=== PATIENT | female | born 1935 | race Caucasian/White ===

== ENCOUNTER → 2016-03-13 | Outpatient (CLI) | payer MEDICARE ==
[~2016-03-13] MED LIST: ALTACE2.5 MG PO; AMBIEN CR6.25 MG PO; ANUCORT-HC25 MG R; ATENOLOL25 MG PO; Altace5 MG PO; CALCIUM 600600 M1 PO; CALCIUM W/D PO; CALCIUM500 M1 PO; CALCIUM600 M2 PO; CARAFATE1 G1 PO; CITRACAL + D 311 TAB PO; COLLAGEN PO; COUMADIN1 MG PO; COUMADIN2 M1 PO; COUMADIN2.5 M1 PO; COUMADIN3 M1 PO; COUMADIN3 MG PO; Carafate1 GM PO; Coumadin3 MG PO; EPI EZ PEN1 MG/ML IM; FENTANYL; FLONASE0.05 MG/AC; GOOD SENSE ALLE10 M2 PO; Lopressor25 MG PO; Lovenox40 MG/0.4 PO; METOPROLOL; METOPROLOL SR25 MG PO; MULTIPLE VITAMI1 CAP PO; NEXIUM40 MG PO; NORTRIPTYLINE10 MG PO; OMEPRAZOLE20 M2 PO; PREDNISONE20 MG PO; RAMIPRIL1.25 MG PO; RAMIPRIL2.5 MG PO; ROBAXIN500 MG PO; SIMVASTATIN40 MG PO; SPIRIVA -- 3018 MCG PO; SPIRIVA18 MCG IH; SYMBICORT 10.10.2 ML IH; SYMBICORT1 AE1 INH; SYMBICORT1 AER IH; TRAMADOL HCL50 MG PO; ULTRAM50 MG PO; WARFARIN SODIUM1 MG PO; ZITHROMAX250 MG PO; ZOCOR40 MG PO; [UNRECOGNIZED DRUG - OTHER] PO
== END | disposition home or self-care (01) ==
LOC: RAD 18:08
DX: M25.551 Pain in right hip (principal); M79.2 Neuralgia and neuritis, unspecified; G89.29 Other chronic pain

== ENCOUNTER → 2016-05-05 | Outpatient (CLI) | payer MEDICARE | END | disposition home or self-care (01) | LOC: MAMMO 09:19 | DX: Z12.31 Encounter for screening mammogram for malignant neoplasm of breast (principal) ==

== ENCOUNTER → 2016-05-14 | Outpatient (CLI) | payer MEDICARE ==
[2016-05-14 12:53] LABS: HEMATOCRIT 39.6 % (37.0-47.0); HEMOGLOBIN 12.6 g/dl (12.0-16.0); MEAN CELL VOLUME 95.4 fl (81.0-99.0); MEAN CORPUSCULAR HGB 30.4 pg (27.0-31.0); MEAN CORPUSCULAR HGB CONC 31.8 g/dl (33.0-37.0); MEAN PLATELET VOLUME 10.1 fl (9.6-12.3); RED BLOOD COUNT 4.15 10*6/uL (4.10-5.10); RED CELL DISTRI WIDTH 13.6 % (0-14.5); WHITE BLOOD COUNT 7.6 10*3/uL (4.8-10.8)
[2016-05-14 13:16] LABS: ALBUMIN 3.9 gm/dl (3.1-4.5); BILIRUBIN, TOTAL 0.7 mg/dl (0.2-1.0); POTASSIUM 4.3 mmol/L (3.5-5.1); TOTAL PROTEIN 7.1 gm/dL (6.4-8.2)
== END | disposition home or self-care (01) ==
LOC: LAB 12:15
PROVIDERS: Internal Medicine
DX: I10 Essential (primary) hypertension (principal); E78.00 Pure hypercholesterolemia, unspecified; R10.11 Right upper quadrant pain

== ENCOUNTER → 2016-05-22 | Outpatient (CLI) | payer MEDICARE | END | disposition home or self-care (01) | LOC: US 02:12 | DX: E04.1 Nontoxic single thyroid nodule (principal); R10.11 Right upper quadrant pain ==

== ENCOUNTER → 2016-06-13 | Outpatient (CLI) | payer MEDICARE ==
[2016-06-13 12:46] LABS: INTERNATIONAL NORM RATIO 2.7 (2.0-3.5); PROTHROMBIN TIME 30.2 SECONDS (9.0-12.4)
== END | disposition home or self-care (01) ==
LOC: LAB 11:49
PROVIDERS: Internal Medicine
DX: Z86.718 Personal history of other venous thrombosis and embolism (principal)

== ENCOUNTER 2016-06-19 08:41 | Inpatient (IN) | payer MEDICARE ==
[~2016-06-19] VITALS: Ht 154.9 cm; Wt 58.1 kg
[2016-06-19 08:41] VITALS: BP 176/88
[2016-06-19 09:04] VITALS: BP 176/89
[2016-06-19 09:36] LABS: BASO % 0.4 % (0.0-1.0); EOS # 0.3 10*3/uL (0.0-0.4); EOS % 3.7 % (1.0-4.0); HEMOGLOBIN 12.7 g/dl (12.0-16.0); LYMPH # 2.3 10*3/uL (1.3-4.4); LYMPH % 30.9 % (27.0-41.0); MEAN CELL VOLUME 95.7 fl (81.0-99.0); MEAN CORPUSCULAR HGB 30.4 pg (27.0-31.0); MEAN CORPUSCULAR HGB CONC 31.8 g/dl (33.0-37.0); MEAN PLATELET VOLUME 10.9 fl (9.6-12.3); MONO # 0.9 10*3/uL (0.1-1.0); MONO % 12.2 % (3.0-9.0); NEUT # 3.9 10*3/uL (2.3-7.9); NEUT % 52.7 % (47.0-73.0); PLATELET COUNT AUTOMATED 311 10*3/uL (130-400); RED BLOOD COUNT 4.18 10*6/uL (4.10-5.10); RED CELL DISTRI WIDTH 13.5 % (0-14.5); WHITE BLOOD COUNT 7.4 10*3/uL (4.8-10.8)
[2016-06-19 09:43] LABS: INTERNATIONAL NORM RATIO 1.1 (2.0-3.5); PROTHROMBIN TIME 11.2 SECONDS (9.0-12.4)
[2016-06-19 10:17] LABS: BUN 21 mg/dl (7-24); CARBON DIOXIDE 28 mmol/L (21-32); CHLORIDE 108 mmol/L (98-107); EST GLOM FILT AFRICAN AMERICAN 58 ml/min; GLUCOSE 80 mg/dL (65-99); POTASSIUM 4.4 mmol/L (3.5-5.1); SODIUM 142 mmol/L (136-145); TROPONIN I < 0.015 ng/ml (<0.045)
[2016-06-19 10:41] VITALS: BP 140/66
[2016-06-19] MEDS ORDERED: SYMBICORT1 AE1 INH (11:00)
[2016-06-19 11:11] VITALS: BP 122/68
[2016-06-19] MEDS ORDERED: PROZAC10 MG PO (15:17)
[2016-06-19] MEDS ORDERED: TOPROL XL25 MG PO (15:18)
[2016-06-19] MEDS ORDERED: ZOFRAN4 MG PO (15:18)
[2016-06-19] MEDS ORDERED: ZANTAC 150150 MG PO (15:18)
[2016-06-19] MEDS ORDERED: COUMADIN1 M1 PO (15:19)
[2016-06-19] MEDS ORDERED: SILENOR3 M1 PO (15:20)
[2016-06-19 16:00] VITALS: BP 105/50
[2016-06-19 18:26] LABS: CHOLESTEROL 249 mg/dL (<200); HDL CHOLESTEROL 78 mg/dl (40-60); LDL CHOLESTEROL 139 mg/dL (9-159); MAGNESIUM 1.9 mg/dL (1.5-2.1); TRIGLYCERIDES 160 mg/dl (<150); VLDL CHOLESTEROL 32 mg/dL (6-40)
[2016-06-19 18:30] LABS: TROPONIN I < 0.015 ng/ml (<0.045)
[2016-06-19 18:32] LABS: THYROID STIM HORMONE (HS) 0.968 uIU/ml (0.358-4.75)
[2016-06-19 20:00] VITALS: BP 113/50
[2016-06-19 20:10] LABS: VITAMIN D, 25-HYDROXY 40.9 ng/mL (30-100)
[2016-06-19 20:11] LABS: FOLIC ACID 12.61 ng/mL (>5.38)
[2016-06-20] VITALS: BP 109/66
[2016-06-20 07:57] LABS: BASO % 0.1 % (0.0-1.0); EOS # 0.3 10*3/uL (0.0-0.4); EOS % 2.8 % (1.0-4.0); HEMATOCRIT 35.9 % (37.0-47.0); HEMOGLOBIN 11.4 g/dl (12.0-16.0); LYMPH # 2.8 10*3/uL (1.3-4.4); LYMPH % 30.3 % (27.0-41.0); MEAN CELL VOLUME 94.5 fl (81.0-99.0); MEAN CORPUSCULAR HGB CONC 31.8 g/dl (33.0-37.0); MEAN PLATELET VOLUME 10.4 fl (9.6-12.3); MONO % 11.1 % (3.0-9.0); NEUT # 5.1 10*3/uL (2.3-7.9); NEUT % 55.5 % (47.0-73.0); PLATELET COUNT AUTOMATED 249 10*3/uL (130-400); RED CELL DISTRI WIDTH 13.6 % (0-14.5); WHITE BLOOD COUNT 9.2 10*3/uL (4.8-10.8)
[2016-06-20 08:00] VITALS: BP 94/54
[2016-06-20 08:23] LABS: ALBUMIN 3.1 gm/dl (3.1-4.5); BILIRUBIN, TOTAL 0.5 mg/dl (0.2-1.0); POTASSIUM 4.2 mmol/L (3.5-5.1); TOTAL PROTEIN 6.2 gm/dL (6.4-8.2)
[2016-06-20 08:24] LABS: INTERNATIONAL NORM RATIO 1.5 (2.0-3.5); PROTHROMBIN TIME 15.9 SECONDS (9.0-12.4)
== END 2016-06-20 11:30 | disposition left against medical advice (07) | DRG 193 ==
LOC: ED 08:41 → EDHOLD 10:55 → 5E 10:55
PROVIDERS: Emergency Medicine; Internal Medicine Hospice and Palliative Medicine
DX: R09.1 Pleurisy (principal); I21.3 ST elevation (STEMI) myocardial infarction of unspecified site; D68.59 Other primary thrombophilia; I48.0 Paroxysmal atrial fibrillation; N18.3 Chronic kidney disease, stage 3 (moderate); I48.2 Chronic atrial fibrillation; Z53.21 Procedure and treatment not carried out due to patient leaving prior to being seen by health care provider; K21.9 Gastro-esophageal reflux disease without esophagitis; F41.9 Anxiety disorder, unspecified; R07.89 Other chest pain; E78.00 Pure hypercholesterolemia, unspecified; F32.9 Major depressive disorder, single episode, unspecified; M10.9 Gout, unspecified; J45.909 Unspecified asthma, uncomplicated; I12.9 Hypertensive chronic kidney disease with stage 1 through stage 4 chronic kidney disease, or unspecified chronic kidney disease; Z88.5 Allergy status to narcotic agent; Z88.2 Allergy status to sulfonamides; Z88.8 Allergy status to other drugs, medicaments and biological substances; Z88.1 Allergy status to other antibiotic agents; Z91.041 Radiographic dye allergy status; Z86.718 Personal history of other venous thrombosis and embolism; Z98.42 Cataract extraction status, left eye; Z98.41 Cataract extraction status, right eye; Z83.3 Family history of diabetes mellitus; Z82.49 Family history of ischemic heart disease and other diseases of the circulatory system; Z90.710 Acquired absence of both cervix and uterus; Z79.899 Other long term (current) drug therapy

== ENCOUNTER → 2016-07-23 | Outpatient (CLI) | payer MEDICARE ==
[~2016-07-23] MED LIST changes: +COUMADIN1 M1 PO; +PROZAC10 MG PO; +SILENOR3 M1 PO; +TOPROL XL25 MG PO; +ZANTAC 150150 MG PO; +ZOFRAN4 MG PO
[2016-07-23 15:32] LABS: PROTHROMBIN TIME 34.1 SECONDS (9.0-12.4)
== END | disposition home or self-care (01) ==
LOC: LAB 14:04
PROVIDERS: Family Medicine
DX: Z51.81 Encounter for therapeutic drug level monitoring (principal)

== ENCOUNTER → 2016-09-05 | Outpatient (CLI) | payer MEDICARE ==
[2016-09-05 09:09] LABS: PROTHROMBIN TIME 10.4 SECONDS (9.0-12.4)
== END | disposition home or self-care (01) ==
LOC: LAB 02:11
PROVIDERS: Family Medicine
DX: Z51.81 Encounter for therapeutic drug level monitoring (principal)

== ENCOUNTER → 2016-09-29 | Outpatient (CLI) | payer MEDICARE ==
[2016-09-29 14:25] LABS: INTERNATIONAL NORM RATIO 3.4 (2.0-3.5); PROTHROMBIN TIME 39.5 SECONDS (9.0-12.4)
== END | disposition home or self-care (01) ==
LOC: LAB 13:43
PROVIDERS: Family Medicine
DX: Z51.81 Encounter for therapeutic drug level monitoring (principal)

== ENCOUNTER → 2016-10-22 | Outpatient (CLI) | payer MEDICARE ==
[2016-10-22 16:34] LABS: INTERNATIONAL NORM RATIO 4.5 (2.0-3.5)
[2016-10-22 16:54] LABS: CREATININE 1.22 mg/dL (0.55-1.02); PHOSPHOROUS 2.6 mg/dL (2.5-4.9)
[2016-10-22 16:59] LABS: THYROID STIM HORMONE (HS) 1.29 uIU/ml (0.358-4.75)
[2016-10-22 17:20] LABS: VITAMIN D, 25-HYDROXY 38.2 ng/mL (30-100)
== END | disposition home or self-care (01) ==
LOC: LAB 16:04
PROVIDERS: Internal Medicine Endocrinology, Diabetes & Metabolism
DX: Z51.81 Encounter for therapeutic drug level monitoring (principal); M81.0 Age-related osteoporosis without current pathological fracture; E21.3 Hyperparathyroidism, unspecified; E04.2 Nontoxic multinodular goiter; Z78.0 Asymptomatic menopausal state

== ENCOUNTER → 2016-11-04 | Outpatient (CLI) | payer MEDICARE | END | disposition home or self-care (01) | LOC: CT 01:55 | DX: M48.02 Spinal stenosis, cervical region (principal); M48.57XA Collapsed vertebra, not elsewhere classified, lumbosacral region, initial encounter for fracture; M47.22 Other spondylosis with radiculopathy, cervical region; M47.26 Other spondylosis with radiculopathy, lumbar region; M47.12 Other spondylosis with myelopathy, cervical region; M41.86 Other forms of scoliosis, lumbar region; Z98.1 Arthrodesis status ==

== ENCOUNTER → 2016-12-11 | Outpatient (CLI) | payer MEDICARE | END | disposition home or self-care (01) | LOC: US 13:00 | DX: I65.1 Occlusion and stenosis of basilar artery (principal); I65.23 Occlusion and stenosis of bilateral carotid arteries ==

== ENCOUNTER → 2016-12-15 | Outpatient (CLI) | payer MEDICARE ==
[2016-12-15 16:45] LABS: INTERNATIONAL NORM RATIO 1.1 (2.0-3.5)
== END | disposition home or self-care (01) ==
LOC: LAB 16:11
DX: K02.9 Dental caries, unspecified (principal); R79.1 Abnormal coagulation profile

== ENCOUNTER → 2017-04-01 | Outpatient (CLI) | payer MEDICARE ==
[2017-04-01 16:58] LABS: INTERNATIONAL NORM RATIO 1.8 (2.0-3.5)
== END | disposition home or self-care (01) ==
LOC: LAB 15:50
DX: D68.8 Other specified coagulation defects (principal)

== ENCOUNTER → 2017-04-15 | Outpatient (CLI) | payer MEDICARE ==
[2017-04-15 09:59] LABS: INTERNATIONAL NORM RATIO 0.9 (2.0-3.5)
== END | disposition home or self-care (01) ==
LOC: LAB 09:33
PROVIDERS: Anesthesiology
DX: D68.8 Other specified coagulation defects (principal)

== ENCOUNTER → 2017-04-16 | Outpatient (CLI) | payer MEDICARE | END | disposition home or self-care (01) | LOC: US 04-15 16:00 | DX: E04.1 Nontoxic single thyroid nodule (principal); D68.8 Other specified coagulation defects ==

== ENCOUNTER → 2017-05-12 | Outpatient (CLI) | payer MEDICARE | END | disposition home or self-care (01) | LOC: CARD 15:51 | DX: I08.3 Combined rheumatic disorders of mitral, aortic and tricuspid valves (principal) ==

== ENCOUNTER → 2017-06-02 | Outpatient (CLI) | payer MEDICARE | END | disposition home or self-care (01) | LOC: US 08:25 | DX: N28.1 Cyst of kidney, acquired (principal); Z90.49 Acquired absence of other specified parts of digestive tract ==

== ENCOUNTER → 2017-07-07 | Outpatient (CLI) | payer MEDICARE | END | disposition home or self-care (01) | LOC: CT 00:56 | DX: M16.12 Unilateral primary osteoarthritis, left hip (principal); S72.012D Unspecified intracapsular fracture of left femur, subsequent encounter for closed fracture with routine healing; X58.XXXD Exposure to other specified factors, subsequent encounter ==

== ENCOUNTER → 2017-07-08 | Outpatient (CLI) | payer MEDICARE ==
[2017-07-08 11:31] LABS: BASO % 0.1 % (0.0-1.0); EOS # 0.1 10*3/uL (0.0-0.4); EOS % 1.2 % (1.0-4.0); HEMATOCRIT 39.5 % (37.0-47.0); HEMOGLOBIN 12.1 g/dl (12.0-16.0); LYMPH # 1.7 10*3/uL (1.3-4.4); MEAN CORPUSCULAR HGB 30.6 pg (27.0-31.0); MEAN CORPUSCULAR HGB CONC 30.6 g/dl (33.0-37.0); MEAN PLATELET VOLUME 10.1 fl (9.6-12.3); MONO # 0.7 10*3/uL (0.1-1.0); MONO % 9.3 % (3.0-9.0); NEUT # 4.9 10*3/uL (2.3-7.9); NEUT % 66.1 % (47.0-73.0); PLATELET COUNT AUTOMATED 320 10*3/uL (130-400); RED BLOOD COUNT 3.95 10*6/uL (4.10-5.10); RED CELL DISTRI WIDTH 13.8 % (0-14.5); WHITE BLOOD COUNT 7.4 10*3/uL (4.8-10.8)
[2017-07-08 11:58] LABS: CREATININE 1.21 mg/dL (0.55-1.02); POTASSIUM 4.3 mmol/L (3.5-5.1); TOTAL PROTEIN 7.7 gm/dL (6.4-8.2)
== END | disposition home or self-care (01) ==
LOC: LAB 10:58
PROVIDERS: Internal Medicine
DX: E78.00 Pure hypercholesterolemia, unspecified (principal); E04.1 Nontoxic single thyroid nodule; M81.0 Age-related osteoporosis without current pathological fracture; I10 Essential (primary) hypertension

== ENCOUNTER → 2017-08-26 | Outpatient (CLI) | payer MEDICARE ==
[2017-08-26 12:41] LABS: BASO % 0.3 % (0.0-1.0); EOS # 0.2 10*3/uL (0.0-0.4); EOS % 3.1 % (1.0-4.0); HEMATOCRIT 38.3 % (37.0-47.0); HEMOGLOBIN 11.7 g/dl (12.0-16.0); LYMPH # 1.8 10*3/uL (1.3-4.4); LYMPH % 24.8 % (27.0-41.0); MEAN CELL VOLUME 101.3 fl (81.0-99.0); MEAN CORPUSCULAR HGB CONC 30.5 g/dl (33.0-37.0); MEAN PLATELET VOLUME 9.8 fl (9.6-12.3); MONO # 0.7 10*3/uL (0.1-1.0); NEUT # 4.5 10*3/uL (2.3-7.9); NEUT % 61.4 % (47.0-73.0); PLATELET COUNT AUTOMATED 297 10*3/uL (130-400); RED BLOOD COUNT 3.78 10*6/uL (4.10-5.10); RED CELL DISTRI WIDTH 13.9 % (0-14.5); WHITE BLOOD COUNT 7.4 10*3/uL (4.8-10.8)
[2017-08-27 08:39] LABS: HEPATITIS B SURFACE AG Negative (Negative); HEPATITIS C VIRUS ANTIBODY <0.1 s/co (0.0-0.9); RHEUMATOID ARTHRITIS FACTOR <10.0 IU/mL (0.0-13.9)
[2017-08-27 12:08] LABS: ANTI-RNP ANTIBODIES <0.2 AI (0.0-0.9)
[2017-08-28 00:03] LABS: CCP ANTIBODIES IGG/IGA 6 units (0-19); PTT-LA 43.6 sec (0.0-51.9)
[2017-08-28 08:23] LABS: LUPUS REFLEX INTERPRETATION Comment: (.)
[2017-09-02 18:03] LABS: HLA-B27 ANTIGEN Negative (.)
== END | disposition home or self-care (01) ==
LOC: LAB 11:12
PROVIDERS: Orthopaedic Surgery
DX: R10.84 Generalized abdominal pain (principal); M25.50 Pain in unspecified joint; Z85.3 Personal history of malignant neoplasm of breast

== ENCOUNTER → 2017-09-03 | Outpatient (CLI) | payer MEDICARE | END | disposition home or self-care (01) | LOC: NM 09:44 | DX: M16.12 Unilateral primary osteoarthritis, left hip (principal); M76.01 Gluteal tendinitis, right hip; M76.02 Gluteal tendinitis, left hip; M75.41 Impingement syndrome of right shoulder; M54.5 Low back pain ==

== ENCOUNTER → 2017-09-21 | Outpatient (CLI) | payer MEDICARE | END | disposition home or self-care (01) | LOC: CT 09:31 | DX: I65.23 Occlusion and stenosis of bilateral carotid arteries (principal); M85.80 Other specified disorders of bone density and structure, unspecified site; G50.1 Atypical facial pain; Z98.890 Other specified postprocedural states ==

== ENCOUNTER → 2017-11-03 | Outpatient (CLI) | payer MEDICARE ==
[~2017-11-03] MED LIST changes: +ALTACE1.25 M1 PO
[2017-11-03 15:18] LABS: CREATININE 1.15 mg/dL (0.55-1.02)
== END | disposition home or self-care (01) ==
LOC: CT 13:56 → LAB 13:56 → CT 15:00
DX: J43.2 Centrilobular emphysema (principal); R91.1 Solitary pulmonary nodule

== ENCOUNTER → 2017-11-19 | Outpatient (CLI) | payer MEDICARE | END | disposition home or self-care (01) | LOC: NM 09:52 | DX: I65.23 Occlusion and stenosis of bilateral carotid arteries (principal); M25.551 Pain in right hip; M25.552 Pain in left hip; M25.511 Pain in right shoulder; M54.2 Cervicalgia; M54.5 Low back pain ==

== ENCOUNTER → 2017-12-07 | Outpatient (CLI) | payer MEDICARE | END | disposition home or self-care (01) | LOC: RAD 11:26 | DX: M81.0 Age-related osteoporosis without current pathological fracture (principal); Z78.0 Asymptomatic menopausal state; Z85.41 Personal history of malignant neoplasm of cervix uteri ==

== ENCOUNTER → 2017-12-30 | Outpatient (CLI) | payer MEDICARE | END | disposition home or self-care (01) | LOC: US 13:59 | DX: I82.411 Acute embolism and thrombosis of right femoral vein (principal) ==

== ENCOUNTER → 2018-01-06 | Outpatient (CLI) | payer MEDICARE | END | disposition home or self-care (01) | LOC: US 14:30 | DX: I82.511 Chronic embolism and thrombosis of right femoral vein (principal); I73.9 Peripheral vascular disease, unspecified ==

== ENCOUNTER 2018-01-21 18:39 | Emergency (ER) | payer MEDICARE ==
[~2018-01-21] VITALS: Ht 154.9 cm
[2018-01-21 18:39] VITALS: BP 158/58
[2018-01-21 19:03] LABS: BASO % 0.3 % (0.0-1.0); EOS # 0.3 10*3/uL (0.0-0.4); HEMATOCRIT 39.4 % (37.0-47.0); HEMOGLOBIN 12.4 g/dl (12.0-16.0); LYMPH # 1.8 10*3/uL (1.3-4.4); MEAN CELL VOLUME 97.8 fl (81.0-99.0); MEAN CORPUSCULAR HGB 30.8 pg (27.0-31.0); MEAN CORPUSCULAR HGB CONC 31.5 g/dl (33.0-37.0); MONO # 0.7 10*3/uL (0.1-1.0); MONO % 10.1 % (3.0-9.0); NEUT % 59.5 % (47.0-73.0); PLATELET COUNT AUTOMATED 259 10*3/uL (130-400); RED BLOOD COUNT 4.03 10*6/uL (4.10-5.10); RED CELL DISTRI WIDTH 14.1 % (0-14.5); WHITE BLOOD COUNT 6.7 10*3/uL (4.8-10.8)
[2018-01-21 19:13] LABS: ACT PARTIAL THROMBO TIME 47.1 SECONDS (20.8-31.5); INTERNATIONAL NORM RATIO 4.1 (2.0-3.5)
[2018-01-21 19:30] LABS: ALBUMIN 3.8 gm/dl (3.1-4.5); CREATININE 1.33 mg/dL (0.55-1.02); POTASSIUM 4.2 mmol/L (3.5-5.1); TOTAL PROTEIN 7.2 gm/dL (6.4-8.2)
== END 2018-01-21 20:55 | disposition home or self-care (01) ==
LOC: ED 18:39
PROVIDERS: Emergency Medicine
DX: I82.493 Acute embolism and thrombosis of other specified deep vein of lower extremity, bilateral (principal); E78.00 Pure hypercholesterolemia, unspecified; J45.909 Unspecified asthma, uncomplicated; I48.2 Chronic atrial fibrillation; I12.9 Hypertensive chronic kidney disease with stage 1 through stage 4 chronic kidney disease, or unspecified chronic kidney disease; N18.3 Chronic kidney disease, stage 3 (moderate); M10.9 Gout, unspecified; K21.9 Gastro-esophageal reflux disease without esophagitis; Z88.6 Allergy status to analgesic agent; Z88.1 Allergy status to other antibiotic agents; Z88.8 Allergy status to other drugs, medicaments and biological substances; Z91.018 Allergy to other foods; Z88.2 Allergy status to sulfonamides; Z79.899 Other long term (current) drug therapy; Z79.02 Long term (current) use of antithrombotics/antiplatelets; Z86.718 Personal history of other venous thrombosis and embolism

== ENCOUNTER → 2018-01-28 | Outpatient (CLI) | payer MEDICARE ==
[2018-01-28 13:40] LABS: ACT PARTIAL THROMBO TIME 46.7 SECONDS (20.8-31.5); INTERNATIONAL NORM RATIO 2.5 (2.0-3.5)
[2018-01-28 13:43] LABS: ALBUMIN 3.7 gm/dl (3.1-4.5); CREATININE 1.35 mg/dL (0.55-1.02); POTASSIUM 4.1 mmol/L (3.5-5.1)
== END | disposition home or self-care (01) ==
LOC: LAB 11:26
PROVIDERS: Family Medicine
DX: I82.402 Acute embolism and thrombosis of unspecified deep veins of left lower extremity (principal)

== ENCOUNTER → 2018-02-04 | Outpatient (CLI) | payer MEDICARE | END | disposition home or self-care (01) | LOC: US 04:03 | DX: I65.23 Occlusion and stenosis of bilateral carotid arteries (principal); R42 Dizziness and giddiness; I10 Essential (primary) hypertension; R51 Headache ==

== ENCOUNTER 2018-02-05 19:51 | Emergency (ER) | payer MEDICARE ==
[~2018-02-05] VITALS: Ht 149.8 cm; Wt 43.5 kg
--- NOTE | ~2018-02-05 | EKG ---
[place], [place] ELECTROCARDIOGRAM REPORT NAME: LESLYE GURROLA UNIT #: [id number] ROOM: DOCTOR: EPIPHANY DRAFT REPORT BIRTHDATE: [birth year] [facility] Test Date: 2018-02-05 Test Time: 20:26:08 Pat Name: LESLYE GURROLA Department: Room: [facility] Gender: F Spool Sander: Junito Fierro : 1935 Requested By: MATHEW PEREZ Order Number: [id number] Reading MD: Kate Cornejo MD Measurements Intervals [place] Rate: 81 P: 74 ME: 167 QRS: 38 QRSD: 82 T: 70 QT: 369 QTc: 429 Interpretive Statements Sinus rhythm Normal ECG Compared to ECG 12/25/2017 15:32:35 Electronically Signed On 02-06-2018 7:13:07 PST by Kate Cornejo MD CM:EKGRPT:ELECTROCARDIOGRAM REPORT 25 2 MATHEW [place] DRAFT REPORT MATHEW PEREZ DO
[2018-02-05 19:55] VITALS: BP 143/65
[2018-02-05 20:44] LABS: BASO % 0.1 % (0.0-1.0); EOS % 0.4 % (1.0-4.0); HEMATOCRIT 36.6 % (37.0-47.0); HEMOGLOBIN 11.7 g/dl (12.0-16.0); LYMPH % 9.8 % (27.0-41.0); MEAN CELL VOLUME 98.4 fl (81.0-99.0); MEAN CORPUSCULAR HGB 31.5 pg (27.0-31.0); MONO % 9.9 % (3.0-9.0); NEUT # 8.1 10*3/uL (2.3-7.9); NEUT % 79.5 % (47.0-73.0); PLATELET COUNT AUTOMATED 235 10*3/uL (130-400); RED BLOOD COUNT 3.72 10*6/uL (4.10-5.10); RED CELL DISTRI WIDTH 14.2 % (0-14.5); WHITE BLOOD COUNT 10.1 10*3/uL (4.8-10.8)
[2018-02-05 20:54] LABS: ACT PARTIAL THROMBO TIME 25.1 SECONDS (20.8-31.5); INTERNATIONAL NORM RATIO 0.9 (2.0-3.5)
[2018-02-05 20:59] LABS: ALBUMIN 3.7 gm/dl (3.1-4.5); ALKALINE PHOSPHATASE 72 U/L (45-117); BUN 17 mg/dl (7-24); CHLORIDE 105 mmol/L (98-107); CREATININE 1.11 mg/dL (0.55-1.02); POTASSIUM 4.1 mmol/L (3.5-5.1); SGOT/AST 31 IU/L (3-35); SGPT/ALT 29 U/L (12-78); SODIUM 140 mmol/L (136-145); TOTAL PROTEIN 7.3 gm/dL (6.4-8.2)
[2018-02-05 21:01] LABS: TROPONIN I < 0.015 ng/ml (<0.045)
[2018-02-05 21:13] VITALS: BP 137/70
== END 2018-02-05 23:58 | disposition home or self-care (01) ==
LOC: ED 19:51 → EDHOLD 22:07 → ED 23:58
PROVIDERS: Student in an Organized Health Care Education/Training Program
DX: M25.552 Pain in left hip (principal); R10.32 Left lower quadrant pain; I12.9 Hypertensive chronic kidney disease with stage 1 through stage 4 chronic kidney disease, or unspecified chronic kidney disease; N18.3 Chronic kidney disease, stage 3 (moderate); I48.2 Chronic atrial fibrillation; K21.9 Gastro-esophageal reflux disease without esophagitis; E78.00 Pure hypercholesterolemia, unspecified; Z86.718 Personal history of other venous thrombosis and embolism; Z88.8 Allergy status to other drugs, medicaments and biological substances; Z88.6 Allergy status to analgesic agent; Z88.1 Allergy status to other antibiotic agents; Z91.041 Radiographic dye allergy status; Z88.5 Allergy status to narcotic agent; Z88.2 Allergy status to sulfonamides; Z79.899 Other long term (current) drug therapy; Z79.01 Long term (current) use of anticoagulants; Z90.710 Acquired absence of both cervix and uterus

== ENCOUNTER → 2018-03-27 | Outpatient (CLI) | payer MEDICARE | END | disposition home or self-care (01) | LOC: LAB 10:58 | PROVIDERS: Family Medicine | DX: D68.59 Other primary thrombophilia (principal) ==

== ENCOUNTER → 2018-04-07 | Outpatient (CLI) | payer MEDICARE ==
[2018-04-07 15:39] LABS: HEMATOCRIT 41.2 % (37.0-47.0); HEMOGLOBIN 12.8 g/dl (12.0-16.0); MEAN CORPUSCULAR HGB 31.7 pg (27.0-31.0); MEAN CORPUSCULAR HGB CONC 31.1 g/dl (33.0-37.0); MEAN PLATELET VOLUME 10.3 fl (9.6-12.3); PLATELET COUNT AUTOMATED 299 10*3/uL (130-400); RED BLOOD COUNT 4.04 10*6/uL (4.10-5.10); RED CELL DISTRI WIDTH 14.4 % (0-14.5); WHITE BLOOD COUNT 5.8 10*3/uL (4.8-10.8)
[2018-04-07 16:25] LABS: ATYPICAL LYMPHS 2 % (0-0); TOTAL CELLS COUNTED 100 #CELLS
[2018-04-07 16:26] LABS: PLATELET SUFFICIENCY NORMAL (NORMAL)
== END | disposition home or self-care (01) ==
LOC: LAB 14:57
PROVIDERS: Family Medicine
DX: R20.2 Paresthesia of skin (principal); Z86.718 Personal history of other venous thrombosis and embolism

== ENCOUNTER → 2018-04-14 | Outpatient (CLI) | payer MEDICARE ==
[2018-04-14 16:20] LABS: BASO % 0.3 % (0.0-1.0); EOS # 0.3 10*3/uL (0.0-0.4); EOS % 3.7 % (1.0-4.0); HEMOGLOBIN 12.1 g/dl (12.0-16.0); LYMPH # 1.7 10*3/uL (1.3-4.4); LYMPH % 23.6 % (27.0-41.0); MEAN CORPUSCULAR HGB 30.9 pg (27.0-31.0); MEAN CORPUSCULAR HGB CONC 30.3 g/dl (33.0-37.0); MEAN PLATELET VOLUME 10.1 fl (9.6-12.3); MONO # 0.7 10*3/uL (0.1-1.0); MONO % 9.2 % (3.0-9.0); NEUT # 4.4 10*3/uL (2.3-7.9); NEUT % 62.9 % (47.0-73.0); PLATELET COUNT AUTOMATED 283 10*3/uL (130-400); RED BLOOD COUNT 3.92 10*6/uL (4.10-5.10); RED CELL DISTRI WIDTH 14.1 % (0-14.5)
[2018-04-14 16:46] LABS: INTERNATIONAL NORM RATIO 0.9 (2.0-3.5)
[2018-04-14 16:48] LABS: ALBUMIN 3.8 gm/dl (3.1-4.5); CREATININE 1.3 mg/dL (0.55-1.02); POTASSIUM 4.6 mmol/L (3.5-5.1)
== END | disposition home or self-care (01) ==
LOC: LAB 15:49
PROVIDERS: Orthopaedic Surgery
DX: M16.7 Other unilateral secondary osteoarthritis of hip (principal); Z79.01 Long term (current) use of anticoagulants

== ENCOUNTER → 2018-07-22 | Outpatient (CLI) | payer MEDICARE ==
[2018-07-22 15:45] LABS: FREE T4 0.95 ng/dl (0.76-1.46)
[2018-07-22 15:50] LABS: THYROID STIM HORMONE (HS) 1.63 uIU/ml (0.358-4.75)
== END | disposition home or self-care (01) ==
LOC: LAB 14:19
PROVIDERS: Specialist
DX: E04.1 Nontoxic single thyroid nodule (principal)

== ENCOUNTER → 2018-08-05 | Outpatient (CLI) | payer MEDICARE | END | disposition home or self-care (01) | LOC: US 00:41 | DX: E04.1 Nontoxic single thyroid nodule (principal) ==

== ENCOUNTER → 2018-10-05 | Outpatient (CLI) | payer MEDICARE | END | disposition home or self-care (01) | LOC: RAD 13:51 | DX: M25.551 Pain in right hip (principal); M25.552 Pain in left hip; Z96.643 Presence of artificial hip joint, bilateral ==

== ENCOUNTER → 2018-10-13 | Outpatient (CLI) | payer MEDICARE | END | disposition home or self-care (01) | LOC: RAD 13:14 | DX: M47.812 Spondylosis without myelopathy or radiculopathy, cervical region (principal); M25.552 Pain in left hip; M43.12 Spondylolisthesis, cervical region; Z98.890 Other specified postprocedural states; Z96.642 Presence of left artificial hip joint ==

== ENCOUNTER 2018-12-29 14:57 | Emergency (ER) | payer MEDICARE ==
[~2018-12-29] VITALS: Ht 149.8 cm; Wt 39.0 kg
[2018-12-29 15:29] LABS: BASO % 0.3 % (0.0-1.0); EOS # 0.2 10*3/uL (0.0-0.4); EOS % 2.7 % (1.0-4.0); HEMATOCRIT 34.2 % (37.0-47.0); HEMOGLOBIN 10.6 g/dl (12.0-16.0); LYMPH # 1.9 10*3/uL (1.3-4.4); LYMPH % 24.6 % (27.0-41.0); MEAN CELL VOLUME 96.6 fl (81.0-99.0); MEAN CORPUSCULAR HGB 29.9 pg (27.0-31.0); MONO # 0.9 10*3/uL (0.1-1.0); MONO % 11.3 % (3.0-9.0); NEUT # 4.6 10*3/uL (2.3-7.9); NEUT % 60.6 % (47.0-73.0); PLATELET COUNT AUTOMATED 326 10*3/uL (130-400); RED BLOOD COUNT 3.54 10*6/uL (4.10-5.10); RED CELL DISTRI WIDTH 14.9 % (0-14.5); WHITE BLOOD COUNT 7.6 10*3/uL (4.8-10.8)
[2018-12-29 15:41] LABS: ACT PARTIAL THROMBO TIME 28.2 SECONDS (20.0-32.1); INTERNATIONAL NORM RATIO 0.9 (2.0-3.5)
[2018-12-29 15:55] LABS: ALBUMIN 3.5 gm/dl (3.1-4.5); ALKALINE PHOSPHATASE 69 U/L (45-117); BUN 27 mg/dl (7-24); CHLORIDE 107 mmol/L (98-107); CREATININE 1.22 mg/dL (0.55-1.02); POTASSIUM 4.5 mmol/L (3.5-5.1); SGOT/AST 21 IU/L (3-35); SGPT/ALT 23 U/L (12-78); SODIUM 139 mmol/L (136-145); TOTAL PROTEIN 7.2 gm/dL (6.4-8.2)
[2018-12-29 15:59] LABS: TROPONIN I < 0.015 ng/ml (<0.045)
[2018-12-29 16:03] VITALS: BP 164/62
== END 2018-12-29 16:16 | disposition left against medical advice (07) ==
LOC: ED 14:57
PROVIDERS: Emergency Medicine
DX: R07.9 Chest pain, unspecified (principal); M25.511 Pain in right shoulder; I10 Essential (primary) hypertension; E78.00 Pure hypercholesterolemia, unspecified; K21.9 Gastro-esophageal reflux disease without esophagitis; G89.29 Other chronic pain; Z86.718 Personal history of other venous thrombosis and embolism; Z86.711 Personal history of pulmonary embolism; Z91.018 Allergy to other foods; Z88.8 Allergy status to other drugs, medicaments and biological substances; Z88.1 Allergy status to other antibiotic agents; Z91.041 Radiographic dye allergy status; Z88.2 Allergy status to sulfonamides; Z79.899 Other long term (current) drug therapy; Z79.01 Long term (current) use of anticoagulants

== ENCOUNTER → 2019-01-04 | Outpatient (CLI) | payer MEDICARE ==
--- NOTE | ~2019-01-04 | PROC NOTE ---
[place], [place] PROCEDURE NOTE [id number] UNIT #: [id number] ROOM: DOCTOR: NDAIADIANE BIRTHDATE: [birth year] DOS: 01/04/2019 MODIFIED BARIUM SWALLOW ORDERING PHYSICIAN: Dr. Burk. RADIOLOGIST: Dr. Duarte. BACKGROUND INFORMATION: The patient is an 83-year-old female who was seen for an outpatient modified barium swallow. This was ordered to view the pharyngeal phase of the swallow. The patient complains of pain in her throat, which she stated has been occurring for "quite some time." Her history also includes COPD, HTN, breast cancer, cervical fusion and brain aneurysm. The patient consumes a regular diet and thin liquid. For the assessment, the patient was alert and able to follow commands. She was cooperative; however, as she waited for the procedure to begin she was becoming anxious and complaining of neck pain, back pain and a headache. She was able to complete the procedure, but beforehand needed to be transferred from wheelchair to a gurney to allow her to lay down comfortably prior to testing to alleviate her reported pain. Oral peripheral exam was completed. Lingual, labial, and buccal skills were within normal limits in terms of strength, range of motion, and coordination. The patient was able to volitionally swallow and cough without difficulty. She was wearing upper denture and partial lower denture with adequate fit reported. METHODS AND MATERIALS USED FOR THE EXAM: The patient was positioned in the lateral plane and the exam was viewed under fluoroscopy. The patient was presented with a variety of consistencies to assess swallowing skills including applesauce mixed with barium presented in half teaspoon amount, barium-coated cookie taken in bite size piece and thin liquid barium taken independently by cup. ORAL PHASE: Unremarkable. PHARYNGEAL PHASE: Unremarkable. ESOPHAGEAL PHASE: This phase of the swallow was not formally assessed during this exam. The patient was scheduled to undergo a barium swallow following this test. Refer to that report for details regarding the esophageal phase of the swallow. IMPRESSIONS AND RECOMMENDATIONS: Based upon assessment results, this 83-year-old patient presents with oral and pharyngeal swallowing skills that are within normal limits. Recommend she continue with regular diet and thin liquids with use of universal safe swallow precautions. No followup treatment is necessary at this time. Results and recommendations were shared with the patient and her spouse and they verbalized understanding. Thank you very much for this referral. Should you have any questions regarding this patient, please contact the speech pathologist at [phone]. [place], [place] PROCEDURE NOTE NAME: LESLYE GURROLA UNIT #: [id number] ROOM: DOCTOR: DIANE ZUNIGA BIRTHDATE: [birth year] DIANE ZUNIGA CM:PROCNOTE:PROCEDURE NOTE 1301 1311 DIANE ZUNIGA
--- NOTE | ~2019-01-04 | SLPIE ---
[place], [place] [facility]ENTER INITIAL EVALUATION NAME: LESLYE GURROLA UNIT #: [id number] ROOM: DOCTOR: CARA LAWSON MD Patient Name: LESLYE GURROLA Date: 01/04/2019 Patient Date of : 1935 [facility] Start of Care: 01/04/2019 Reason for Treatment: RAD/SH Primary Care Physician: HILLARY HUDSON Referring Physician: CARA LAWSON Speech-Language Pathology Initial Evaluation Reason for Visit RAD/ Arrival Information Subjective Initial evaluation completed to generate electronic medical record. Please refer to KidBook for further information. Medical History Past Medical History [facility] Visit Start Time 10:00 AM Visit End Time 11:00 AM Visit Duration 60 minutes Procedures CPT [place] Code Intervention Modifier Minutes Units 5724354 MOTION FLUOROSCOPY/SWALLOW 60 1 65854 Total Timed Minutes 0 Total Treatment Minutes 60 Therapist Signature(s) Signed By: Marisol Ramirez [facility] License #: [id number] 01/04/2019, 11:35 AM CM:KATHI 1138 1138 [facility]
--- NOTE | ~2019-01-04 | SLPPOC ---
[place], [place] APPRENTICE PLUMBER PLAN OF CARE NAME: LESLYE GURROLA UNIT #: [id number] ROOM: DOCTOR: CARA LAWSON MD Patient Name: JAREN GURROLAYCPallavi Daley Date: 01/04/2019 Patient Date of : 1935 [facility] Start of Care: 01/04/2019 Reason for Treatment: RAD/SH Visits since start of care: 1 Primary Care Physician: HILLARY HUDSON Referring Physician: CARA LAWSON Speech-Language Pathology Initial Evaluation Plan of Care Reason for Visit RAD/SH Arrival Information Subjective Initial evaluation completed to generate electronic medical record. Please refer to [employer] for further information. Medical History Past Medical History Therapist Signature(s) Signed By: Marisol Ramirez State License #: [id number] 01/04/2019, 11:35 AM Referring Physician Signature I certify the need for these services furnished under this plan of treatment and while under my care. CARA LAWSON Date/Time CM:SLPPOC 1138 1138 [facility]
--- NOTE | ~2019-01-04 | SHMRC ---
[place], [place] [facility] NAME: LESLYE GURROLA UNIT #: [id number] ROOM: DOCTOR: CARA LAWSON MD Patient Name: LESLYE GURROLA. Date: 01/04/2019 Patient Number: [id number] Treating Therapist:Marisol Ramirez Patient Date of : 1935 Location: [facility] Patient Reason for Visit RAD/SH Electronic Signature(s) Signed By: Date: Marisol Ramirez 01/04/2019 11:35:03 Entered By: Marisol Ramirez on 01/04/2019 11:32:46 Arrival Information Patient Name: LESLYE GURROLA. Date: 01/04/2019 Patient Number: [id number] Treating Therapist:Marisol Ramirez Patient Date of : 1935 Location: [facility] Patient Subjective Initial evaluation completed to generate electronic medical record. Please refer to go[employer] Fetch for further information. Electronic Signature(s) Signed By: Date: Marisol Ramierz 01/04/2019 11:35:03 Entered By: Marisol Ramirez on 01/04/2019 11:32:46 Medical History Patient Name: LESLYE GURROLA. Date: 01/04/2019 Patient Number: [id number] Treating Therapist:Marisol Ramirez Patient Date of : 1935 Location: [facility] Patient Past Medical History Electronic Signature(s) Signed By: Date: Marisol Ramirez 01/04/2019 11:35:03 Entered By: Marisol Ramirez on 01/04/2019 11:32:46 Allergy List Patient Name: LESLYE GURROLA. Date: 01/04/2019 Patient Number: [id number] Treating Therapist:Marisol Ramirez Patient Date of : 1935 Location: [facility] Patient Electronic Signature(s) Signed By: Date: Marisol Ramirez 01/04/2019 11:35:03 Entered By: Marisol Ramirez on 01/04/2019 11:32:46 Arrival Information Patient Name: LESLYE GURROLA. Date: 01/04/2019 Patient Number: [id number] Treating Therapist:Marisol Ramirez Patient Date of : 1935 Location: [facility] Patient Subjective Initial evaluation completed to generate electronic medical record. Please refer to [employer] Fetch for further information. Electronic Signature(s) [place], [place] [facility] NAME: LESLYE GURROLA UNIT #: [id number] ROOM: DOCTOR: CARA LAWSON MD Signed By: Date: Marisol Ramirez 01/04/2019 11:35:03 Entered By: Marisol Ramirez on 01/04/2019 11:32:46 SuperBill Patient Name: LESLYE GURROLA. Date: 01/04/2019 Patient Number: [id number] Treating Therapist:Marisol Ramirez Patient Date of : 1935 Location: [facility] Patient Visit Start Time 10:00 AM Visit End Time 11:00 AM Visit Duration 60 minutes Procedures CPT [place] Code Intervention Modifier Minutes Units 67133 [id number] MOTION FLUOROSCOPY/SWALLOW 60 1 Total Timed Minutes 0 Total Treatment Minutes 60 Electronic Signature(s) Signed By: Date: Marisol Ramirez 01/04/2019 11:35:03 Entered By: Marisol Ramirez on 01/04/2019 11:34:02 Chief Complaint Patient Name: LESLYE GURROLA. Date: 01/04/2019 Patient Number: [id number] Treating Therapist:Marisol Ramirez Patient Date of : 1935 Location: [facility] Patient Reason for Visit RAD/SH Electronic Signature(s) Signed By: Date: Marisol Ramirez 01/04/2019 11:35:03 Entered By: Marisol Ramirez on 01/04/2019 11:32:46 Medical History Patient Name: LESLYE GURROLA. Date: 01/04/2019 Patient Number: [id number] Treating Therapist:Marisol Ramirez Patient Date of : 1935 Location: [facility] Patient Past Medical History Electronic Signature(s) Signed By: Date: Marisol Ramirez 01/04/2019 11:35:03 Entered By: Marisol Ramirez on 01/04/2019 11:32:46 Allergy List Patient Name: LESLYE GURROLA. Date: 01/04/2019 Patient Number: [id number] Treating Therapist:Marisol Ramirez Patient Date of : 1935 [facility] Patient Electronic Signature(s) Signed By: Date: [facility] NAME: LESLYE GURROLA UNIT #: [id number] ROOM: DOCTOR: LULU ASHLEY,Marisol Grover 01/04/2019 11:35:03 Entered By: Marisol Ramirez on 01/04/2019 11:32:46 CM:PTMRC 1138 1138 [facility]
--- NOTE | 2019-01-04 12:36 | NUR ---
SPEECH PATHOLOGY Outpatient MBS completed as per orders. Patient c/o pain in her throat which she stated has been occurring for "quite some time." Her history also includes COPD, HTN, breast CA, cervical fusion, and brain aneurysm. She consumes a regular diet and thin liquid. Oral motor exam was WNL. She was assessed with puree, solid food and thin liquid by cup. Results revealed oral and pharyngeal swallowing skills WNL across all consistencies. No penetration, aspiration or pharyngeal residue observed. Recommend patient remain on present diet with use of universal safe swallow precautions. No follow up is warranted. Results and derrick. were shared with patient and spouse and they verbalized understanding. Following this procedure, patient was to undergo a barium swallow. Thank you for this referral. DIANE ZUNIGA MS[facility] VENDOR
== END | disposition home or self-care (01) ==
LOC: RAD/SH 12-28 10:00 → RAD 12-28 11:00 → RAD/SH 08:43
DX: R13.10 Dysphagia, unspecified (principal); J02.9 Acute pharyngitis, unspecified

== ENCOUNTER → 2019-02-04 | Outpatient (CLI) | payer MEDICARE | END | disposition home or self-care (01) | LOC: CT 12:33 | DX: R55 Syncope and collapse (principal); R51 Headache; Z91.81 History of falling ==

== ENCOUNTER → 2019-02-25 | Outpatient (CLI) | payer MEDICARE | END | disposition home or self-care (01) | LOC: RAD 02-11 14:00 | DX: M81.0 Age-related osteoporosis without current pathological fracture (principal); R26.2 Difficulty in walking, not elsewhere classified; Z74.09 Other reduced mobility; Z90.710 Acquired absence of both cervix and uterus ==

== ENCOUNTER → 2019-03-03 | Outpatient (CLI) | payer MEDICARE | END | disposition home or self-care (01) | LOC: RAD 15:24 | DX: M25.551 Pain in right hip (principal); M25.561 Pain in right knee; M25.571 Pain in right ankle and joints of right foot ==

== ENCOUNTER 2019-03-24 08:11 | Emergency (ER) | payer MEDICARE ==
[~2019-03-24] VITALS: Ht 149.8 cm; Wt 39.5 kg
[2019-03-24 09:10] LABS: BASO % 0.2 % (0.0-1.0); EOS # 0.3 10*3/uL (0.0-0.4); EOS % 4.7 % (1.0-4.0); HEMATOCRIT 36.1 % (37.0-47.0); HEMOGLOBIN 11.1 g/dl (12.0-16.0); LYMPH # 1.8 10*3/uL (1.3-4.4); LYMPH % 28.1 % (27.0-41.0); MEAN CELL VOLUME 97.3 fl (81.0-99.0); MEAN CORPUSCULAR HGB 29.9 pg (27.0-31.0); MEAN CORPUSCULAR HGB CONC 30.7 g/dl (33.0-37.0); MONO # 0.7 10*3/uL (0.1-1.0); MONO % 11.4 % (3.0-9.0); NEUT # 3.5 10*3/uL (2.3-7.9); NEUT % 55.4 % (47.0-73.0); PLATELET COUNT AUTOMATED 264 10*3/uL (130-400); RED BLOOD COUNT 3.71 10*6/uL (4.10-5.10); RED CELL DISTRI WIDTH 14.1 % (0-14.5); WHITE BLOOD COUNT 6.2 10*3/uL (4.8-10.8)
[2019-03-24 09:28] LABS: ACT PARTIAL THROMBO TIME 25.6 SECONDS (20.0-32.1); INTERNATIONAL NORM RATIO 0.9 (2.0-3.5)
[2019-03-24 09:29] LABS: ALBUMIN 3.6 gm/dl (3.1-4.5); ALKALINE PHOSPHATASE 74 U/L (45-117); BUN 25 mg/dl (7-24); CHLORIDE 105 mmol/L (98-107); CREATININE 1.16 mg/dL (0.55-1.02); POTASSIUM 4.3 mmol/L (3.5-5.1); SGOT/AST 18 IU/L (3-35); SGPT/ALT 20 U/L (12-78); SODIUM 139 mmol/L (136-145); TOTAL PROTEIN 7.1 gm/dL (6.4-8.2)
[2019-03-24 09:33] LABS: TROPONIN I < 0.015 ng/ml (<0.045)
[2019-03-24 10:26] VITALS: BP 133/58
== END 2019-03-24 11:35 | disposition left against medical advice (07) ==
LOC: ED 08:11
PROVIDERS: Emergency Medicine
DX: R07.89 Other chest pain (principal); J45.909 Unspecified asthma, uncomplicated; I48.20 Chronic atrial fibrillation, unspecified; K21.9 Gastro-esophageal reflux disease without esophagitis; E78.00 Pure hypercholesterolemia, unspecified; I12.9 Hypertensive chronic kidney disease with stage 1 through stage 4 chronic kidney disease, or unspecified chronic kidney disease; N18.3 Chronic kidney disease, stage 3 (moderate); Z91.018 Allergy to other foods; Z88.8 Allergy status to other drugs, medicaments and biological substances; Z88.6 Allergy status to analgesic agent; Z88.1 Allergy status to other antibiotic agents; Z91.041 Radiographic dye allergy status; Z88.5 Allergy status to narcotic agent; Z88.2 Allergy status to sulfonamides; Z79.899 Other long term (current) drug therapy; Z79.01 Long term (current) use of anticoagulants; Z90.710 Acquired absence of both cervix and uterus

== ENCOUNTER 2019-04-15 11:46 | Emergency (ER) | payer MEDICARE ==
[~2019-04-15] VITALS: Ht 149.8 cm; Wt 40.8 kg
[2019-04-15 11:59] VITALS: BP 157/66
== END 2019-04-15 13:05 | disposition home or self-care (01) ==
LOC: ED 11:46
DX: M79.604 Pain in right leg (principal); I10 Essential (primary) hypertension; K21.9 Gastro-esophageal reflux disease without esophagitis; G89.29 Other chronic pain; Z91.018 Allergy to other foods; Z88.6 Allergy status to analgesic agent; Z88.8 Allergy status to other drugs, medicaments and biological substances; Z88.1 Allergy status to other antibiotic agents; Z91.041 Radiographic dye allergy status; Z88.5 Allergy status to narcotic agent; Z88.2 Allergy status to sulfonamides; Z79.899 Other long term (current) drug therapy; Z79.01 Long term (current) use of anticoagulants; Z90.710 Acquired absence of both cervix and uterus; Z86.718 Personal history of other venous thrombosis and embolism

== ENCOUNTER → 2019-04-15 | Outpatient (CLI) | payer MEDICARE | END | disposition home or self-care (01) | LOC: US 10:17 | DX: I82.411 Acute embolism and thrombosis of right femoral vein (principal); N18.3 Chronic kidney disease, stage 3 (moderate); M79.89 Other specified soft tissue disorders; M79.661 Pain in right lower leg; D68.59 Other primary thrombophilia; Z86.718 Personal history of other venous thrombosis and embolism ==

== ENCOUNTER → 2019-09-09 | Outpatient (CLI) | payer MEDICARE | END | disposition home or self-care (01) | LOC: US 12:27 | DX: R10.2 Pelvic and perineal pain (principal) ==

== ENCOUNTER → 2021-08-28 | Outpatient (CLI) | payer MEDICARE | END | disposition home or self-care (01) | LOC: CARD 10:00 | PROVIDERS: ATTEND Specialist | DX: I47.1 Supraventricular tachycardia (principal) ==

== ENCOUNTER → 2021-11-01 | Outpatient (CLI) | payer MEDICARE | END | disposition home or self-care (01) | LOC: RAD 15:00 | PROVIDERS: ATTEND Nurse Practitioner Critical Care Medicine | DX: J44.9 Chronic obstructive pulmonary disease, unspecified (principal) ==

== ENCOUNTER → 2021-11-03 | Outpatient (CLI) | payer MEDICARE | END | disposition home or self-care (01) | LOC: LAB 03:00 | PROVIDERS: ATTEND Nurse Practitioner Critical Care Medicine | DX: J44.9 Chronic obstructive pulmonary disease, unspecified (principal) ==

== ENCOUNTER → 2022-06-13 | Outpatient (CLI) | payer MEDICARE | END | disposition home or self-care (01) | LOC: RAD 15:04 | PROVIDERS: ATTEND Nurse Practitioner Critical Care Medicine | DX: Z01.811 Encounter for preprocedural respiratory examination (principal) ==